=== PATIENT | male | born 1960 | race Caucasian/White ===

== ENCOUNTER 2021-05-31 11:24 | Inpatient (IN) | payer MEDICAID, OTHER ==
[~2021-05-31] VITALS: Ht 172.7 cm; Wt 88.6 kg
[2021-05-31] MEDS ORDERED: MORPHINE 2 MG/ML 1ML VIAL (J2270) IV PRN ×3 (12:15→19:20)
[2021-05-31] MEDS ORDERED: NS 1,000 ML IV ONE (12:15)
[2021-05-31] MEDS ORDERED: PIPERACILLIN/TAZOBACTAM SOD 3.375 GM in D5W MINI-BAG PLUS 50 ML IV ONE (12:15)
[2021-05-31] MEDS ORDERED: ISOVUE-370 76% 100ML VIAL As Ordered ONE (12:42)
[2021-05-31 12:56] LABS: BASO % 0.3 % (0.0-1.0); EOS # 0.1 10^3/uL (0.0-0.5); EOS % 0.8 % (0.0-3.0); HEMATOCRIT 43.3 % (42.0-52.0); HEMOGLOBIN 14.7 g/dl (13.5-17.5); LYMPH % 9.1 % (24.0-44.0); MEAN CORPUSCULAR HEMOGLOBIN 30.6 pg (27.0-33.0); MEAN CORPUSCULAR HGB CONC 33.9 g/dl (32.0-36.5); MEAN CORPUSCULAR VOLUME 90.2 fl (80.0-96.0); MONO # 1.3 10^3/uL (0.0-0.8); MONO % 11.7 % (2.0-8.0); NEUTROPHILS # 8.8 10^3/uL (1.5-8.5); NEUTROPHILS % 77.4 % (36.0-66.0); PLATELET COUNT, AUTOMATED 204 10^3/uL (150-450); WHITE BLOOD COUNT 11.3 10^3/uL (4.0-10.0)
[2021-05-31 13:09] LABS: RSV AMPLIFICATION NEGATIVE (NEGATIVE)
--- NOTE | 2021-05-31 13:10 | REP ---
INDICATION: perirectal abscess/hernia. COMPARISON: None. TECHNIQUE: Standard helical technique after the intravenous administration of 100 cc Isovue 370. FINDINGS: The lung bases are clear. The liver, gallbladder, spleen, and pancreas are unremarkable. There is a 1.6 cm sized nodule in the left adrenal gland. There is 2.2 cm sized low-density structure which is smoothly marginated in the interpolar region of the right kidney. The left kidney is unremarkable. There is a 3.7 cm sized infrarenal abdominal aortic aneurysm which measures 5.5 cm in length. There is descending colon and sigmoid colon diverticulosis. In the perianal soft tissues there is a partially imaged 5.2 x 3.9 cm sized area of slightly irregular peripheral enhancement with mild central low-density this is seen on the right greater than left and abuts the base of the right ischial rectal fossa. There is no evidence of free fluid or free air. Bone window technique throughout the exam shows the osseous structures to be within normal limits for the patient's age. There are degenerative changes seen involving the spine particularly L5-S1. There is a grade 1 L4 upon L5 spondylolisthesis secondary to degenerative facet joint changes at L4-5. 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 IMPRESSION: 1. Perianal soft tissue enhancement and possible early abscess formation although incompletely imaged. 2. Colonic diverticulosis. 3. Simple right renal cyst. 4. Infrarenal abdominal aortic aneurysm as described above. 5. There is a left adrenal gland nodule which is incompletely imaged since no pre contrast-enhanced images were obtained. For completeness I would recommend pre and post gadolinium enhanced adrenal gland MRI with in and out of phase imaging. 6. Other findings as described above. <Electronically signed by Geronimo Armendariz > 05/31/21 [id number]
[2021-05-31 13:11] LABS: INR 1.06; PROTHROMBIN TIME 14.3 SECONDS (12.7-14.5)
[2021-05-31 13:12] LABS: PARTIAL THROMBOPLASTIN TIME 32.5 SECONDS (25.9-37.0)
[2021-05-31 13:21] LABS: ALBUMIN 3.4 GM/DL (3.2-5.2); ALT/SGPT 24 U/L (12-78); BILIRUBIN,DIRECT 0.3 MG/DL (0.0-0.2); BILIRUBIN,TOTAL 0.9 MG/DL (0.2-1.0); BLOOD UREA NITROGEN 11 MG/DL (7-18); CALCIUM LEVEL 8.9 MG/DL (8.8-10.2); CARBON DIOXIDE LEVEL 26 MEQ/L (21-32); CHLORIDE LEVEL 95 MEQ/L (98-107); CREATININE FOR GFR 1.08 MG/DL (0.70-1.30); GLOMERULAR FILTRATION RATE > 60.0 (>49); GLUCOSE, FASTING 181 MG/DL (70-100); LIPASE 50 U/L (73-393); SODIUM LEVEL 129 MEQ/L (136-145); TOTAL PROTEIN 7.4 GM/DL (6.4-8.2)
--- NOTE | 2021-05-31 13:38 | REP ---
INDICATION: preop COMPARISON: None. TECHNIQUE: Portable AP view of the chest FINDINGS: The mediastinum and cardiac silhouette are within normal limits for portable technique. The lung phillips are clear without acute consolidation, effusion, or pneumothorax. Skeletal structures are intact. IMPRESSION: No acute cardiopulmonary process appreciated. <Electronically signed by Rodger Sun > 05/31/21 [id number]
[2021-05-31] MEDS ORDERED: HOME MED LIST COMPLETE! XX SCH (14:35)
[2021-05-31] MEDS ORDERED: ONDANSETRON 4MG/2ML VIAL IV PRN ×2 (16:25→19:30)
[2021-05-31] MEDS ORDERED: ACETAMINOPHEN TAB 650MG DOSE (2X325MG) PO PRN (16:25)
[2021-05-31] MEDS ORDERED: KETOROLAC 30 MG/ML 1ML VIAL IV PRN (16:25)
[2021-05-31] MEDS ORDERED: LR 1,000 ML IV SCH ×2 (17:00→19:30)
[2021-05-31] MEDS ORDERED: ALBUTEROL SULFATE 2.5 MG/0.5 ML INH NEB SOLN INH ONE (18:00)
[2021-05-31] MEDS ORDERED: METOCLOPRAMIDE INJ 10MG/2ML VIAL (J2765 PER 1) As Ordered ONE (18:04)
[2021-05-31] MEDS ORDERED: ROCURONIUM BROMIDE 50 MG/5 ML VIAL As Ordered ONE (18:04)
[2021-05-31] MEDS ORDERED: LIDOCAINE 2% 100MG/5ML SDV (FOR ANES.) As Ordered ONE (18:04)
[2021-05-31] MEDS ORDERED: fentaNYL 100 MCG/2 ML INJECTION (J3010) As Ordered ONE ×2 (18:04→18:32)
[2021-05-31] MEDS ORDERED: MIDAZOLAM INJ 2MG/2ML VIAL (J2250 PER 1MG) As Ordered ONE (18:04)
[2021-05-31] MEDS ORDERED: ONDANSETRON 4MG/2ML VIAL As Ordered ONE (18:04)
[2021-05-31] MEDS ORDERED: propofoL 200 MG/20 ML VIAL As Ordered ONE (18:04)
[2021-05-31] MEDS ORDERED: dexameTHASONE 4 MG/ML 1ML VIAL (J1100 PER 1MG) As Ordered ONE (18:04)
[2021-05-31] MEDS ORDERED: SUGAMMADEX SODIUM 500 MG/5 ML VIAL (BRIDION) As Ordered ONE (18:04)
[2021-05-31] MEDS ORDERED: ZOSYN 3.375GM VIAL (J2543) As Ordered ONE (18:27)
[2021-05-31] MEDS ORDERED: BUPIVACAINE HCL 0.25% 10ML VIAL As Ordered ONE (18:48)
[2021-05-31] MEDS ORDERED: BUPIVACAINE LIPOSOME/PF 1.3% 20ML VIAL (13.3MG/ML)(EXPAREL)(C9290 PER1MG) As Ordered ONE (18:49)
--- NOTE | 2021-05-31 19:14 | ECGEPIP ---
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
[2021-05-31] MEDS ORDERED: IBUPROFEN 600MG TAB PO PRN (19:20)
[2021-05-31] MEDS ORDERED: oxyCODONE 5MG TAB PO PRN (19:30)
[2021-05-31] MEDS ORDERED: fentaNYL 100 MCG/2 ML INJECTION (J3010) IV PRN (19:30)
[2021-05-31] MEDS ORDERED: METOCLOPRAMIDE INJ 10MG/2ML VIAL (J2765 PER 1) IV PRN (19:30)
[2021-05-31] MEDS ORDERED: PIPERACILLIN/TAZOBACTAM SOD 3.375 GM in D5W MINI-BAG PLUS 50 ML IV SCH (20:00)
[2021-05-31 21:13] VITALS: BP 134/85
[2021-05-31] MEDS: DOCUSATE SODIUM 100MG CAPSULE PO SCH (21:37)
[2021-05-31] MEDS: NS 1,000 ML IV SCH (21:37)
[2021-05-31] MEDS: PIPERACILLIN/TAZOBACTAM SOD 3.375 GM in D5W MINI-BAG PLUS 50 ML IV SCH (23:40)
[2021-06-01 05:34] VITALS: BP 136/74
[2021-06-01] MEDS: PIPERACILLIN/TAZOBACTAM SOD 3.375 GM in D5W MINI-BAG PLUS 50 ML IV SCH ×3 (05:47→17:46)
[2021-06-01] MEDS: DOCUSATE SODIUM 100MG CAPSULE PO SCH ×2 (08:38→20:42)
[2021-06-01] MEDS: NS 1,000 ML IV SCH (08:38)
[2021-06-01] MEDS: PERCOCET 5MG/325MG TAB PO PRN ×2 (08:51→17:49)
[2021-06-01 08:53] LABS: BASO % 0.1 % (0.0-1.0); HEMATOCRIT 38.3 % (42.0-52.0); LYMPH # 0.8 10^3/uL (1.5-5.0); LYMPH % 9.3 % (24.0-44.0); MEAN CORPUSCULAR HEMOGLOBIN 30.9 pg (27.0-33.0); MEAN CORPUSCULAR HGB CONC 33.9 g/dl (32.0-36.5); MONO # 0.8 10^3/uL (0.0-0.8); MONO % 8.9 % (2.0-8.0); NEUTROPHILS # 6.9 10^3/uL (1.5-8.5); NEUTROPHILS % 80.9 % (36.0-66.0); PLATELET COUNT, AUTOMATED 200 10^3/uL (150-450); RED BLOOD COUNT 4.21 10^6/uL (4.30-6.10); WHITE BLOOD COUNT 8.5 10^3/uL (4.0-10.0)
[2021-06-01 09:26] LABS: BLOOD UREA NITROGEN 12 MG/DL (7-18); CALCIUM LEVEL 8.5 MG/DL (8.8-10.2); CARBON DIOXIDE LEVEL 24 MEQ/L (21-32); CHLORIDE LEVEL 103 MEQ/L (98-107); CREATININE FOR GFR 0.91 MG/DL (0.70-1.30); GLOMERULAR FILTRATION RATE > 60.0 (>49); GLUCOSE, FASTING 231 MG/DL (70-100); POTASSIUM SERUM 4.6 MEQ/L (3.5-5.1); SODIUM LEVEL 135 MEQ/L (136-145)
[2021-06-01 10:00] VITALS: BP 136/87
[2021-06-01 14:00] VITALS: BP 134/78
[2021-06-01 17:55] VITALS: BP 135/77
[2021-06-01 20:00] VITALS: BP 133/77
[2021-06-02] VITALS: BP 127/76
[2021-06-02] MEDS: PIPERACILLIN/TAZOBACTAM SOD 3.375 GM in D5W MINI-BAG PLUS 50 ML IV SCH ×5 (00:06→23:53)
[2021-06-02 04:00] VITALS: BP 130/71
[2021-06-02] MEDS: DOCUSATE SODIUM 100MG CAPSULE PO SCH ×2 (07:32→21:00)
--- NOTE | 2021-06-02 08:38 | RO ---
OPERATIVE NOTE DATE OF OPERATION: 05/31/2021 PREOPERATIVE DIAGNOSIS: Perirectal abscess. POSTOPERATIVE DIAGNOSIS: Perirectal abscess with skin necrosis. PROCEDURE: Debridement of perirectal abscess. SURGEON: Jamaal Gunter MD COAT FELLER: ANESTHESIA: General. INDICATIONS FOR THE PROCEDURE: The patient is a 60-year-old man who presented to the emergency department with a roughly four day history of increasing pain in the right perirectal area. He had no prior history of similar infections. He begin to have some spontaneous drainage on the morning of the and came to the emergency department where he was found to have a fully extensive area of redness and induration in the right perirectal area. There was actually some necrosis of the skin overlying the abscess and he is now for debridement in the operating room for this apparent infection. OPERATIVE PROCEDURE: The patient was brought to the operating room and placed on the table in a supine position. He was placed under general endotracheal anesthesia. He was moved into a lithotomy position with the lower extremities and padded stirrups. A digital rectal examination was performed, which revealed no evidence of mucosal abnormality. The perineum was prepped and draped in a sterile fashion. Inspection showed an approximately 13 cm long area by roughly 5 to 6 cm in width extending from the very posterior most aspect of the scrotum on the right along the right side of the perirectal area. There was an area of skin necrosis approximately 3 cm in diameter and somewhat irregular in the mid portion of this. There was a small open area through which some bloody purulent fluid was draining. This was just lateral to the anal verge. There was no evidence of extension of induration or redness to the left side. Using a scalpel, a radially oriented ellipse of skin including the area of necrosis and drainage was excised. On opening this abscess, a large amount of bloody purulent fluid was released. Culturettes for aerobic and anaerobic culture was obtained. It was found that the underlying fat beneath the areas of skin necrosis was also necrotic. The area of skin excision measured approximately 5 cm by 3 cm. As this was opened up, the abscess was found to track in a fairly deep subcutaneous position to the anterior and posterior extent of the palpable area of induration. There did not appear to be any tracking of infection beyond this area of redness and induration and certainly no sign of tracking of necrosis to suggest necrotizing fasciitis. Some fragments of debris were removed. The wound was irrigated. Hemostasis was ensured with the cautery. Approximately 30 mL of a 50:50 mix of 25% Marcaine and Exparel were infiltrated around the wound for some postoperative pain management. The wound was then filled with saline moisten gauze and covered with a bulky bandage. The patient tolerated the procedure well without apparent complication. He was returned to a flat position and then awaken in the operating room, extubated and moved to the recovery room in stable condition.
[2021-06-02 09:12] LABS: BASO # 0.1 10^3/uL (0.0-0.2); BASO % 0.7 % (0.0-1.0); EOS # 0.2 10^3/uL (0.0-0.5); EOS % 2.7 % (0.0-3.0); HEMATOCRIT 35.8 % (42.0-52.0); LYMPH # 1.6 10^3/uL (1.5-5.0); LYMPH % 23.1 % (24.0-44.0); MEAN CORPUSCULAR HEMOGLOBIN 30.8 pg (27.0-33.0); MEAN CORPUSCULAR HGB CONC 33.5 g/dl (32.0-36.5); MEAN CORPUSCULAR VOLUME 91.8 fl (80.0-96.0); MONO # 0.6 10^3/uL (0.0-0.8); MONO % 9.2 % (2.0-8.0); NEUTROPHILS # 4.4 10^3/uL (1.5-8.5); NEUTROPHILS % 63.4 % (36.0-66.0); PLATELET COUNT, AUTOMATED 201 10^3/uL (150-450); WHITE BLOOD COUNT 6.9 10^3/uL (4.0-10.0)
[2021-06-02 09:22] LABS: HEMOGLOBIN A1c 7.7 %
[2021-06-02] MEDS: PERCOCET 5MG/325MG TAB PO PRN ×2 (12:22→20:29)
[2021-06-02 14:00] VITALS: BP 158/85
--- NOTE | 2021-06-02 16:12 | IPN ---
PROGRESS NOTE DATE: 06/01/2021 HISTORY: Patient is a 60-year-old man admitted last evening with a roughly 4-day history of a developing right-sided perirectal abscess. He underwent surgery with debridement. He had an area of skin necrosis overlying the midportion of the abscess. His wound was packed with some saline-moistened gauze, and he has remained on Zosyn. Patient reports that he still has significant tenderness, though it may be somewhat better. Vital signs show that the patient has been afebrile since surgery. His pulse is in the 70s generally. Blood pressure is good. Intake and output show that his oral intake is improving, and his urine output, though not measured, indicates that he has had several spontaneous voids. PHYSICAL EXAMINATION: The patient is up ambulating in the room. He is complaining of pain in the area of the wound and has some fecal soilage to the bandage. IMPRESSION: Patient is doing well, now 12-14 hours after his surgery for drainage of his right-sided perirectal abscess. Overall he appears to be doing well and is afebrile. PLAN: Patient is going to receive a dose of morphine for his discomfort, and the nurse will change the gauze packing in his wound. After that, we will start him on some 3-4 times daily wound care with warm soaks or showers. We discussed potential discharge and will shoot for the morning of June 02. Because his blood sugars have been somewhat elevated, I will plan to check a hemoglobin A1c. The patient does not have a primary care provider, and we will need to make some arrangements for this at the time of his discharge. DREW
--- NOTE | 2021-06-02 19:17 | IPN ---
PROGRESS NOTE DATE: 06/02/2021 HISTORY: The patient was admitted on the with a large right sided perirectal abscess with some evidence of necrosis in the overlying skin. He underwent debridement of his abscess. He has been doing well and remains on Zosyn for antibiotic coverage because of the significant surrounding cellulitis and concerns about some probably underlying diabetes. He reports some improvement in his discomfort but feels just tired and worn out today. Vital signs show that he has been afebrile over the past 24 hours. His pulse is in the 60's to 70's generally and his blood pressure is normal. Intake and output shows that the patient had several bowel movements yesterday that were generally loose. He tolerated a diet well. He is voiding without difficulty. PHYSICAL EXAMINATION: GENERAL APPEARANCE: The patient appears somewhat tired and uncomfortable, but I think more comfortable than yesterday. Examination of the perineum shows that he has a small amount of packing within his wound from yesterday. The induration and redness that extended anterior and posterior from the open wound has significantly improved. He remains quite tender to palpation and does not wish me to remove his packing at this time. LABORATORY STUDIES: Today white count of 7, hemoglobin 12, hematocrit 36 and a platelet count of 201,000. Differential count is nearly normal with 63% neutrophils, 23% lymphocytes and 9% monocytes. He had a hemoglobin A1c today which was 7.7, giving him an estimated mean plasma glucose of 174. His cultures are growing E-coli from his abscess which is resistant only to Ampicillin and sensitive to multiple other antibiotics. IMPRESSION: The patient is doing well now postop day two from his abscess drainage. His hemoglobin A1c would suggest that he is in fact diabetic. He has no primary care provider at this time. His culture is growing E-coli which is sensitive to his current antibiotic. PLAN: The patient will have his wound packing removed sometime today after he has received some pain medication. We will then start him on 3-4 times daily warm soaks or showers or tub soaks. The patient has requested follow up with a visiting nurse once he is discharged and this seems reasonable. I counseled him that he will need to be connected with a primary care physician to address the issues of possible diabetes and how this should be managed. I will plan on sending him home on some antibiotics, most likely sulfa. As he is not feeling up to discharge today, we will aim for tomorrow for a date for discharge. [facility] MEDICAL CENTERFilippo
[2021-06-02 22:00] VITALS: BP 163/90
[2021-06-03 06:00] VITALS: BP 161/98
[2021-06-03] MEDS: PIPERACILLIN/TAZOBACTAM SOD 3.375 GM in D5W MINI-BAG PLUS 50 ML IV SCH ×2 (06:18→12:44)
[2021-06-03] MEDS: DOCUSATE SODIUM 100MG CAPSULE PO SCH (08:14)
[2021-06-03] MEDS ORDERED: BACT800T5 PO (13:17)
[2021-06-03 14:00] VITALS: BP 150/90
--- NOTE | 2021-06-04 09:15 | ED PDOC ---
Post-Departure Follow-Up certified letter sent regarding radiology report Marie Cohen MD Jun 04, 2021 09:15
== END 2021-06-03 17:40 | disposition home health service (06) | DRG 254 ==
LOC: M ED 11:24 → EDBD 11:24 → M ED INP 16:24 → M MS5PR 21:00
PROVIDERS: ADMIT Surgery; ATTEND Surgery
PROC: 0JBB0ZZ Excision of Perineum Subcutaneous Tissue and Fascia, Open Approach (ICD-10-PCS; principal; 2021-05-31 17:00)
DX: K61.1 Rectal abscess (principal); B96.20 Unspecified Escherichia coli [E. coli] as the cause of diseases classified elsewhere; E11.9 Type 2 diabetes mellitus without complications; Z88.1 Allergy status to other antibiotic agents; Z88.8 Allergy status to other drugs, medicaments and biological substances

== ENCOUNTER → 2021-08-03 | Outpatient (CLI) | payer OTHER ==
[~2021-08-03] MED LIST: BACT800T5 PO; PROHANCE 279.3MG/ML 15ML VIAL As Ordered ONE; PROHANCE 279.3MG/ML 5ML VIAL As Ordered ONE
== END ==
LOC: M RAD 14:50
PROVIDERS: ATTEND Physician Assistant
DX: R19.09 Other intra-abdominal and pelvic swelling, mass and lump (principal)
CPT/HCPCS: 74183; A9576

== ENCOUNTER → 2022-04-05 | Outpatient (REF) | payer OTHER, MEDICAID ==
[~2022-04-05] MED LIST changes: -PROHANCE 279.3MG/ML 15ML VIAL As Ordered ONE; -PROHANCE 279.3MG/ML 5ML VIAL As Ordered ONE
[2022-04-05 17:54] LABS: ALBUMIN 3.8 GM/DL (3.2-5.2); ALT/SGPT 30 U/L (12-78); BILIRUBIN,TOTAL 0.9 MG/DL (0.2-1.0); BLOOD UREA NITROGEN 14 MG/DL (7-18); CALCIUM LEVEL 8.9 MG/DL (8.8-10.2); CARBON DIOXIDE LEVEL 25 MEQ/L (21-32); CHLORIDE LEVEL 98 MEQ/L (98-107); CHOLESTEROL LEVEL 170 MG/DL (<200); CHOLESTEROL RISK RATIO 3.617 (<5); CREATININE FOR GFR 1.11 MG/DL (0.70-1.30); GLOMERULAR FILTRATION RATE > 60.0 (>49); GLUCOSE, FASTING 190 MG/DL (70-100); HDL CHOLESTEROL 47 MG/DL (>40); LDL CHOLESTEROL 77 MG/DL (<100); NON-HDL-C 123 MG/DL; POTASSIUM SERUM 3.9 MEQ/L (3.5-5.1); SODIUM LEVEL 131 MEQ/L (136-145); TRIGLYCERIDES LEVEL 230 MG/DL (<150)
[2022-04-05 20:14] LABS: HEPATITIS C VIRUS ABY INDEX < 0.0 INDEX (<0.8)
[2022-04-05 20:41] LABS: HEMOGLOBIN A1c 8.6 %
== END ==
LOC: M LAB REF 16:59
PROVIDERS: ATTEND Physician Assistant
DX: Z11.59 Encounter for screening for other viral diseases (principal); I10 Essential (primary) hypertension; E11.9 Type 2 diabetes mellitus without complications

== ENCOUNTER → 2022-05-17 | Outpatient (CLI) | payer OTHER, MEDICAID | LOC: M SOG 07:53 | PROVIDERS: ATTEND Physician Assistant | DX: M67.432 Ganglion, left wrist (principal) ==

== ENCOUNTER → 2022-06-02 | Outpatient (CLI) | payer OTHER, MEDICAID | LOC: M SOG 08:06 | PROVIDERS: ATTEND Physician Assistant | DX: M67.432 Ganglion, left wrist (principal); Z53.8 Procedure and treatment not carried out for other reasons ==

== ENCOUNTER → 2022-06-10 | Outpatient (CLI) | payer OTHER, MEDICAID | LOC: M RAD 11:08 | PROVIDERS: ATTEND Physician Assistant | DX: M54.50 Low back pain, unspecified (principal) ==

== ENCOUNTER → 2022-06-16 | Outpatient (CLI) | payer OTHER, MEDICAID | LOC: M SOG 08:00 | PROVIDERS: ATTEND Physician Assistant | DX: M25.532 Pain in left wrist (principal) ==

== ENCOUNTER → 2022-07-20 | Outpatient (CLI) | payer OTHER | LOC: M PLAIMG 09:22 | PROVIDERS: ATTEND Physician Assistant | DX: M54.2 Cervicalgia (principal); M51.36 Other intervertebral disc degeneration, lumbar region; M43.16 Spondylolisthesis, lumbar region; M48.02 Spinal stenosis, cervical region ==

== ENCOUNTER → 2022-08-03 | Outpatient (CLI) | payer OTHER | LOC: M CARPUL 08:00 | PROVIDERS: ATTEND Physician Assistant | DX: R06.09 Other forms of dyspnea (principal) ==

== ENCOUNTER → 2022-09-13 | Outpatient (CLI) | payer OTHER | LOC: M PLAIMG 14:11 | PROVIDERS: ATTEND Pain Medicine Interventional Pain Medicine | DX: M47.817 Spondylosis without myelopathy or radiculopathy, lumbosacral region (principal) ==

== ENCOUNTER → 2022-11-15 | Outpatient (REF) | payer OTHER ==
[2022-11-15 19:24] LABS: ALBUMIN 4.2 G/DL (3.2-5.2); BLOOD UREA NITROGEN 14 MG/DL (9-23); CALCIUM LEVEL 8.6 MG/DL (8.3-10.6); CARBON DIOXIDE LEVEL 29 MMOL/L (20-31); CHLORIDE LEVEL 101 MMOL/L (98-107); CREATININE FOR GFR 0.91 MG/DL (0.70-1.30); GLOMERULAR FILTRATION RATE > 60.0 (>49); GLUCOSE, FASTING 163 MG/DL (74-106); MAGNESIUM LEVEL 1.6 MG/DL (1.8-2.4); PHOSPHORUS LEVEL 3.4 MG/DL (2.4-5.1); POTASSIUM SERUM 5.1 MMOL/L (3.5-5.1); SODIUM LEVEL 135 MMOL/L (136-145)
== END ==
LOC: M LAB REF 17:37
PROVIDERS: ATTEND Physician Assistant
DX: M50.90 Cervical disc disorder, unspecified, unspecified cervical region (principal); M51.36 Other intervertebral disc degeneration, lumbar region; M54.50 Low back pain, unspecified

== ENCOUNTER → 2022-11-26 | Outpatient (CLI) | payer OTHER | LOC: M RAD 13:04 | PROVIDERS: ATTEND Physician Assistant | DX: M17.12 Unilateral primary osteoarthritis, left knee (principal); M43.16 Spondylolisthesis, lumbar region; M25.562 Pain in left knee; R06.09 Other forms of dyspnea; R94.2 Abnormal results of pulmonary function studies; J98.8 Other specified respiratory disorders ==

== ENCOUNTER → 2022-12-27 | Outpatient (REF) | payer OTHER ==
[2022-12-27 19:03] LABS: ALBUMIN 3.9 G/DL (3.2-5.2); ALKALINE PHOSPHATASE 70 U/L (46-116); ALT/SGPT 57 U/L (7.0-40); AST/SGOT 35 U/L (<34); BILIRUBIN,TOTAL 0.7 MG/DL (0.3-1.2); BLOOD UREA NITROGEN 17 MG/DL (9-23); CARBON DIOXIDE LEVEL 26 MMOL/L (20-31); CHLORIDE LEVEL 102 MMOL/L (98-107); CREATININE FOR GFR 0.93 MG/DL (0.70-1.30); GLOMERULAR FILTRATION RATE > 60.0 (>49); GLUCOSE, FASTING 136 MG/DL (74-106); MAGNESIUM LEVEL 1.7 MG/DL (1.8-2.4); POTASSIUM SERUM 4.6 MMOL/L (3.5-5.1); SODIUM LEVEL 137 MMOL/L (136-145); TOTAL PROTEIN 7.7 G/DL (5.7-8.2)
== END ==
LOC: M LAB REF 17:45
PROVIDERS: ATTEND Physician Assistant
DX: I10 Essential (primary) hypertension (principal)

== ENCOUNTER → 2023-01-18 | Outpatient (REF) | payer OTHER, MEDICAID ==
[2023-01-18 17:04] LABS: CREATININE, URINE 26.8 MG/DL; CREATININE,RANDOM URINE 26.8 MG/DL
[2023-01-18 17:05] LABS: MALB URINE SIEMENS < 3.0 MG/L; MAU/CREAT RATIO 11.1 MCG/MG (0.0-30.0)
== END ==
LOC: M LAB REF 16:17
PROVIDERS: ATTEND Physician Assistant
DX: E11.9 Type 2 diabetes mellitus without complications (principal)

== ENCOUNTER 2023-05-25 07:44 | Day surgery (SDC) | payer OTHER ==
[~2023-05-25] VITALS: Ht 175.3 cm; Wt 89.1 kg
[~2023-05-25 07:44] MED LIST changes: +ceFAZolin SOD 2 GM in IV 1 EA IV ONE
[2023-05-25] MEDS ORDERED: LR 1,000 ML IV SCH (08:35)
[2023-05-25] MEDS ORDERED: ONDANSETRON 4MG 2ML VIAL As Ordered ONE (08:40)
[2023-05-25] MEDS ORDERED: propofoL 200 MG/20 ML VIAL As Ordered ONE (08:40)
[2023-05-25] MEDS ORDERED: ACETAMINOPHEN 1000MG 100ML IV BAG As Ordered ONE ×2 (08:40→09:46)
[2023-05-25] MEDS ORDERED: LIDOCAINE 2% 100MG/5ML SDV (FOR ANES.) As Ordered ONE (08:40)
[2023-05-25] MEDS ORDERED: fentaNYL 100 MCG/2 ML INJECTION As Ordered ONE (08:41)
[2023-05-25] MEDS ORDERED: MIDAZOLAM INJ 2MG/2ML VIAL As Ordered ONE (08:41)
[2023-05-25] MEDS ORDERED: LIDOCAINE 1% SDV 30ML VIAL As Ordered ONE (08:51)
[2023-05-25] MEDS ORDERED: KETOROLAC 60MG 2ML VIAL As Ordered ONE (09:34)
[2023-05-25] MEDS ORDERED: GLYCOPYRROLATE INJ 0.2 MG/ML 2 ML VIAL As Ordered ONE (09:34)
[2023-05-25] MEDS ORDERED: ALBUTEROL 6.7GM INHALER **FOR ANES. CART/OMNICELL ONLY As Ordered ONE (09:41)
[2023-05-25] MEDS ORDERED: fentaNYL 100 MCG/2 ML INJECTION IV PRN (10:45)
[2023-05-25] MEDS ORDERED: ONDANSETRON 4MG 2ML VIAL IV PRN (10:45)
[2023-05-25] MEDS ORDERED: MORPHINE 2 MG/ML 1ML VIAL IV PRN (10:45)
[2023-05-25] MEDS: oxyCODONE 5MG TAB PO PRN ×2 (11:05→11:29)
[2023-05-25 12:45] VITALS: BP 165/92; TEMP 97.8; O2SAT 97
== END 2023-05-25 12:45 | disposition home or self-care (01) ==
LOC: M SDC 07:44
PROVIDERS: ATTEND Podiatrist Foot & Ankle Surgery
DX: M20.11 Hallux valgus (acquired), right foot (principal); M21.611 Bunion of right foot; M20.41 Other hammer toe(s) (acquired), right foot; I10 Essential (primary) hypertension; E11.9 Type 2 diabetes mellitus without complications; E78.00 Pure hypercholesterolemia, unspecified; J44.9 Chronic obstructive pulmonary disease, unspecified; Z79.899 Other long term (current) drug therapy; F17.210 Nicotine dependence, cigarettes, uncomplicated; Z88.8 Allergy status to other drugs, medicaments and biological substances; Z79.85 Long-term (current) use of injectable non-insulin antidiabetic drugs; Z88.1 Allergy status to other antibiotic agents
CPT/HCPCS: 28285; 28298; 97116; C1713; J0131; J0665; J1885; J2250; J2405; J3010

== ENCOUNTER → 2023-05-25 | Outpatient (CLI) | payer OTHER ==
[~2023-05-25] MED LIST changes: +ADV100INH; +ALBU8.5H; +AMLO1TAB25 PO; +ATOR1TAB19 PO; +CALTTAB6 PO; +DULO1CAP4 PO; +HYDR12.55 PO; +LISI20TA33 PO; +NAPR-885 PO; +TRUL0.5I
[2023-05-25 07:57] LABS: BASO # 0.1 10^3/uL (0.0-0.2); BASO % 1.6 % (0.0-1.0); EOS # 0.3 10^3/uL (0.0-0.5); EOS % 3.9 % (0.0-3.0); HEMATOCRIT 47.6 % (42.0-52.0); HEMOGLOBIN 16.6 g/dl (13.5-17.5); LYMPH # 1.5 10^3/uL (1.5-5.0); LYMPH % 20.9 % (24.0-44.0); MEAN CORPUSCULAR HEMOGLOBIN 33.7 pg (27.0-33.0); MEAN CORPUSCULAR HGB CONC 34.9 g/dl (32.0-36.5); MEAN CORPUSCULAR VOLUME 96.6 fl (80.0-96.0); MONO # 0.6 10^3/uL (0.0-0.8); NEUTROPHILS # 4.4 10^3/uL (1.5-8.5); NEUTROPHILS % 63.6 % (36.0-66.0); RED BLOOD COUNT 4.93 10^6/uL (4.30-6.10)
[2023-05-25 08:13] LABS: ALBUMIN 4.1 G/DL (3.2-5.2); ALKALINE PHOSPHATASE 71 U/L (46-116); ALT/SGPT 68 U/L (7.0-40); AST/SGOT 42 U/L (<34); BILIRUBIN,TOTAL 0.5 MG/DL (0.3-1.2); BLOOD UREA NITROGEN 15 MG/DL (9-23); CALCIUM LEVEL 9.3 MG/DL (8.3-10.6); CARBON DIOXIDE LEVEL 30 MMOL/L (20-31); CHLORIDE LEVEL 103 MMOL/L (98-107); CREATININE FOR GFR 0.88 MG/DL (0.70-1.30); GLOMERULAR FILTRATION RATE > 60.0 (>49); GLUCOSE, FASTING 143 MG/DL (74-106); POTASSIUM SERUM 4.4 MMOL/L (3.5-5.1); SODIUM LEVEL 138 MMOL/L (136-145); TOTAL PROTEIN 8.2 G/DL (5.7-8.2)
[2023-05-25 08:21] LABS: ERYTHROCYTE SEDIMENTATION RATE 32 mm/hr (0-20)
[2023-05-25 08:41] LABS: HIV 1&2 SCREEN NEGATIVE (NEGATIVE)
[2023-05-25 08:48] LABS: HEPATITIS B CORE ANTIBODY IGM NEGATIVE (NEGATIVE); HEPATITIS C VIRUS ABY INDEX 0.07 INDEX (<0.8)
== END ==
LOC: M LAB 07:05
PROVIDERS: ATTEND Nurse Practitioner Family
DX: L40.9 Psoriasis, unspecified (principal)

== ENCOUNTER → 2023-05-25 | Outpatient (CLI) | payer OTHER ==
[2023-05-25 07:59] LABS: BASO # 0.1 10^3/uL (0.0-0.2); BASO % 1.2 % (0.0-1.0); EOS # 0.2 10^3/uL (0.0-0.5); EOS % 3.5 % (0.0-3.0); HEMATOCRIT 47.7 % (42.0-52.0); HEMOGLOBIN 16.6 g/dl (13.5-17.5); LYMPH # 1.5 10^3/uL (1.5-5.0); LYMPH % 21.1 % (24.0-44.0); MEAN CORPUSCULAR HEMOGLOBIN 33.8 pg (27.0-33.0); MEAN CORPUSCULAR HGB CONC 34.8 g/dl (32.0-36.5); MEAN CORPUSCULAR VOLUME 97.1 fl (80.0-96.0); MONO # 0.7 10^3/uL (0.0-0.8); MONO % 9.5 % (2.0-8.0); NEUTROPHILS # 4.4 10^3/uL (1.5-8.5); NEUTROPHILS % 63.5 % (36.0-66.0); RED BLOOD COUNT 4.91 10^6/uL (4.30-6.10); WHITE BLOOD COUNT 6.9 10^3/uL (4.0-10.0)
[2023-05-25 08:12] LABS: BLOOD UREA NITROGEN 15 MG/DL (9-23); CALCIUM LEVEL 9.3 MG/DL (8.3-10.6); CARBON DIOXIDE LEVEL 30 MMOL/L (20-31); CHLORIDE LEVEL 103 MMOL/L (98-107); GLOMERULAR FILTRATION RATE > 60.0 (>49); GLUCOSE, FASTING 141 MG/DL (74-106); POTASSIUM SERUM 4.5 MMOL/L (3.5-5.1); SODIUM LEVEL 139 MMOL/L (136-145)
[2023-05-25 09:53] LABS: HEMOGLOBIN A1c 6.3 % (4.0-6.0)
== END ==
LOC: M LAB 07:03
PROVIDERS: ATTEND Nurse Practitioner Family
DX: Z01.818 Encounter for other preprocedural examination (principal); E11.9 Type 2 diabetes mellitus without complications; M21.619 Bunion of unspecified foot